=== PATIENT | male | born 1955 | race Caucasian/White ===

== ENCOUNTER 2017-01-17 14:28 | Observation (INO) | payer BC ==
[~2017-01-17 14:28] MED LIST: REGADENOSON INJ 0.4 MG/5 ML DISP.SYRIN IV ONE
--- NOTE | 2017-01-17 14:51 | ER Document Report ---
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 The patient reports associated dyspnea and felt lightheaded, but he denies any nausea, vomiting, belching or cough. The patient took aspirin and the pain came down from about a 10 out of 10 down to a 7 out of 10. The patient was given 2 sublingual nitroglycerin while en route by EMS in the chest pain came down to a 1 out of 10 at time of arrival. Past Medical History - General Information source: Patient - Social History Smoking Status: Never Smoker Cigarette use (# per day): No Frequency of alcohol use: None Drug Abuse: None Lives with: Family Family History: CAD Review of Systems - Review of Systems Notes: REVIEW OF SYSTEMS: CONSTITUTIONAL : Denies fever, chills, or sweats. Denies recent illness. EENT: Denies eye, ear, throat, or mouth pain or symptoms. Denies nasal or sinus congestion or discharge. Denies throat, tongue, or mouth swelling or difficulty swallowing. CARDIOVASCULAR: Denies palpitations or racing or irregular heart beat. Denies ankle edema. RESPIRATORY: Denies cough, cold, or chest congestion. Denies wheezing. GASTROINTESTINAL: Denies abdominal pain or distention. Denies nausea, vomiting , or diarrhea. Denies blood in vomitus, stools, or per rectum. Denies black, tarry stools. Denies constipation. GENITOURINARY: Denies difficulty urinating, painful urination, burning, frequency, blood in urine, or discharge. MUSCULOSKELETAL: Denies back or neck pain or stiffness. Denies joint pain or swelling. SKIN: Denies rash, lesions or sores. HEMATOLOGIC : Denies easy bruising or bleeding. LYMPHATIC: Denies swollen, enlarged glands. NEUROLOGICAL: Denies confusion or altered mental status. Denies passing out or loss of consciousness. Denies headache. Denies weakness or paralysis or loss of use of either side. Denies problems with gait or speech. Denies sensory loss, numbness, or tingling. Denies seizures. PSYCHIATRIC: Denies depression, suicidal ideation, or homicidal ideation. Patient does admit to some recent stress work related to his increased work load. ALL OTHER SYSTEMS REVIEWED AND NEGATIVE. Dictation was performed using [employer] voice recognition software Physical Exam - Vital signs Vitals: Pulse Ox 98 01/17/17 14:40 - Notes Notes: PHYSICAL EXAMINATION: GENERAL: Well-appearing, well-nourished and in no acute distress. HEAD: Atraumatic, normocephalic. EYES: Pupils equal round and reactive to light, extraocular movements intact, sclera anicteric, conjunctiva are normal. ENT: Nares patent, oropharynx clear without exudates. Moist mucous membranes. NECK: Normal range of motion, supple without lymphadenopathy LUNGS: Breath sounds clear to auscultation bilaterally and equal. No wheezes rales or rhonchi. HEART: Regular rate and rhythm without murmurs ABDOMEN: Soft, nontender, nondistended abdomen. No guarding, no rebound. No masses appreciated. Negative Bishop's. Musculoskeletal: Normal range of motion, no pitting or edema. No cyanosis. Negative Homans. No palpable cord. I'm unable to reproduce the patient's chest pain on palpation or with resistance to motion. No erythema or crepitance. Patient localizes the pain is midsternal to slightly right-sided. NEUROLOGICAL: Cranial nerves grossly intact. Normal speech, normal gait. Normal sensory, motor exams PSYCH: Normal mood, normal affect. SKIN: Warm, Dry, normal turgor, no rashes or lesions noted. Course - Re-evaluation Re-evalutation: 01/17/17 18:08 Patient remained pain free after nitroglycerin paste was placed and denies any dyspnea. Initial troponin negative. Lab studies otherwise normal. Chest x-ray normal. Discussion was undertaken with Dr. Moise who agreed to consult on the patient. Discussion was undertaken with Dr. Marie who agreed to see the patient in the emergency department. Discussion was undertaken with the patient and his daughter who is a nurse at [employer] and they were in agreement with admission for further cardiac evaluation and care. Repeat troponin was ordered which is pending. Repeat EKG as interpreted by me showed normal sinus rhythm heart rate of 70. There was some resolution of the inferior T-wave inversions versus the previous EKG. Although this change was minimal, it could represent some ischemia from the initial EKG. No obvious evidence for STEMI. - Vital Signs Vital signs: Temp Pulse Resp BP Pulse Ox 98 01/17/17 14:40 - Laboratory Result Diagrams: 01/17/17 14:50 01/17/17 14:50 Laboratory results interpreted by me: 01/17/17 01/17/17 14:50 14:50 RBC 4.13 L Hgb 13.1 L Chloride 108 H ALT 14 L Total Protein 6.2 L - EKG Interpretation by Me EKG shows normal: Sinus rhythm Additional EKG results interpreted by me: 01/17/17 15:02 EKG as interpreted by me showed normal sinus rhythm at 76. There is no gross evidence for acute IN or ischemia noted. There is somewhat late R-wave progression and Q waves appreciated inferiorly. No old EKG available for comparison. Critical Care Note - Critical Care Note Total time excluding time spent on procedures (mins): 38 Discharge - Discharge Clinical Impression: Parkinsons disease Chest pain Qualifiers: Chest pain type: unspecified Qualified Code(s): R07.9 - Chest pain, unspecified Condition: Stable Disposition: ADMITTED INPATIENT Admitting Provider: Hospitalist Unit Admitted: Telemetry
[2017-01-17] MEDS ORDERED: NITROGLYCERIN 2% OINTMENT 1 GM PACKET TP ONE (14:52)
[2017-01-17 15:18] LABS: ABSOLUTE EOSINOPHILS # (AUTO) 0.1 10^3/uL (0.0-0.6); ABSOLUTE LYMPHOCYTES (AUTO) 1.1 10^3/uL (0.5-4.7); ABSOLUTE MONOCYTES (AUTO) 0.6 10^3/uL (0.1-1.4); ABSOLUTE NEUT (AUTO) 4.7 10^3/uL (1.7-8.2); BASOPHILS % (AUTO) 0.5 % (0-2); HEMATOCRIT 38.7 % (37.9-51.0); HEMOGLOBIN 13.1 g/dL (13.5-17.0); HGB HCT DIFFERENCE 0.6; LYMPHOCYTES % (AUTO) 17.2 % (13-45); MEAN CORPUSCULAR HEMOGLOBIN 31.8 pg (27.0-33.4); MEAN CORPUSCULAR HGB CONC 33.9 g/dL (32.0-36.0); MEAN CORPUSCULAR VOLUME 94 fl (80-97); MONOCYTES % (AUTO) 9.4 % (3-13); PROTHROMBIN TIME 12.8 SEC (11.4-15.4); RED BLOOD COUNT 4.13 10^6/uL (4.35-5.55); RED CELL DISTRIBUTION WIDTH 13.3 % (11.5-14.0); SEGMENTED NEUTROPHILS % (AUTO) 71.9 % (42-78); WHITE BLOOD COUNT 6.5 10^3/uL (4.0-10.5)
[2017-01-17 15:45] LABS: ALANINE AMINOTRANSFERASE 14 U/L (21-72); ALBUMIN 3.9 g/dL (3.5-5.0); ALKALINE PHOSPHATASE 94 U/L (38-126); ANION GAP 8 (5-19); ASPARTATE AMINO TRANSFERASE 21 U/L (17-59); BILIRUBIN,DIRECT 0.3 mg/dL (0.0-0.4); BILIRUBIN,TOTAL 0.9 mg/dL (0.2-1.3); BLOOD UREA NITROGEN 13 mg/dL (7-20); CARBON DIOXIDE 26 mmol/L (22-30); CHLORIDE 108 mmol/L (98-107); CREATININE RESULT 0.92 mg/dL (0.52-1.25); GLUCOSE 92 mg/dL (75-110); MAGNESIUM 1.8 mg/dL (1.6-2.3); SODIUM 141.6 mmol/L (137-145); TOTAL PROTEIN 6.2 g/dL (6.3-8.2)
[2017-01-17] MEDS ORDERED: ONDANSETRON HCL INJ/PF 4 MG/2 ML SDV IV PRN (18:16)
[2017-01-17] MEDS ORDERED: ONDANSETRON 4 MG TAB.RAPDIS PO PRN (18:16)
[2017-01-17] MEDS ORDERED: ACETAMINOPHEN 325 MG TABLET PO PRN (18:16)
--- NOTE | 2017-01-17 18:30 | PDOC H&P ---
History of Present Illness Admission Date/PCP: 01/17/2017. Primary care is Dr. 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 He described it as a sharp pain that did not radiate. He reported the pain was initially 10 out of 10. He took 2 aspirin and sat down. Once EMS arrived he was given nitroglycerin and his pain decreased down to 7 out of 10. Since going to the emergency room he was given Nitropaste and his pain has resolved. He did not have any associated nausea or vomiting. He was diaphoretic. Denies any palpitations or tachycardia. The patient prior to this episode had not had any pain or he was delivering. He denies have any dyspnea on exertion. Denies any orthopnea or PND. His father at age 85 with coronary artery disease. The patient does not have hypertension or diabetes. His only risk factor is his family history. Past Medical History Cardiac Medical History: Reports: None Pulmonary Medical History: Reports: None EENT Medical History: Reports: None Neurological Medical History: Reports: Other - Parkinson's disease Endocrine Medical History: Reports: None Renal/ Medical History: Reports: None Malignancy Medical History: Reports: None GI Medical History: Reports: None Musculoskeltal Medical History: Reports: None Skin Medical History: Reports: None Traumatic Medical History: Reports: None Hematology: Reports: None Infectious Medical History: Reports: None Past Surgical History Past Surgical History: Reports: None Social History Information Source: Patient Lives with: Family Smoking Status: Never Smoker Frequency of Alcohol Use: None Hx Recreational Drug Use: No Drugs: None Hx Prescription Drug Abuse: No - Advance Directive Resuscitation Status: Full Code Family History Family History: Father at age 85 from coronary artery disease. Mother at age 85 from pancreatic cancer. Parental Family History Reviewed: Yes Children Family History Reviewed: No Sibling(s) Family History Reviewed.: No Review of Systems Constitutional: ABSENT: chills, fever(s), headache(s), weight gain, weight loss Eyes: ABSENT: visual disturbances Ears: ABSENT: hearing changes Cardiovascular: PRESENT: as per HPI Respiratory: ABSENT: cough, hemoptysis Gastrointestinal: ABSENT: abdominal pain, constipation, diarrhea, hematemesis, hematochezia, nausea, vomiting Genitourinary: ABSENT: dysuria, hematuria Musculoskeletal: ABSENT: joint swelling Integumentary: ABSENT: rash, wounds Neurological: PRESENT: abnormal movements - Parkinson's disease.. ABSENT: abnormal gait, abnormal speech, confusion, dizziness, focal weakness, syncope Psychiatric: ABSENT: anxiety, depression Endocrine: ABSENT: cold intolerance, heat intolerance, polydipsia, polyuria Hematologic/Lymphatic: ABSENT: easy bleeding, easy bruising Physical Exam Vital Signs: Temp Pulse Resp BP Pulse Ox 98 01/17/17 14:40 Intake & Output 01/16/17 01/17/17 01/18/17 06:59 06:59 06:59 Weight 77.111 kg General appearance: PRESENT: no acute distress, well-developed, well-nourished Eye exam: PRESENT: conjunctiva pink, EOMI, PERRLA. ABSENT: scleral icterus Ear exam: PRESENT: normal external ear exam Mouth exam: PRESENT: moist, tongue midline Neck exam: ABSENT: carotid bruit, JVD, lymphadenopathy, thyromegaly Respiratory exam: PRESENT: clear to auscultation lauren. ABSENT: rales, rhonchi, wheezes Cardiovascular exam: PRESENT: RRR. ABSENT: diastolic murmur, rubs, systolic murmur Pulses: PRESENT: normal dorsalis pedis pul Vascular exam: PRESENT: normal capillary refill GI/Abdominal exam: PRESENT: normal bowel sounds, soft. ABSENT: distended, guarding, mass, organolmegaly, rebound, tenderness Rectal exam: PRESENT: deferred Extremities exam: ABSENT: calf tenderness, clubbing, pedal edema Neurological exam: PRESENT: alert, awake, oriented to person, oriented to place , oriented to time, oriented to situation, CN II-XII grossly intact, other - Some mild cogwheeling. Psychiatric exam: PRESENT: appropriate affect Skin exam: PRESENT: dry, intact, warm. ABSENT: cyanosis, rash Results Laboratory Results: 01/17/17 14:50 01/17/17 14:50 01/17/17 01/17/17 14:50 14:50 WBC 6.5 RBC 4.13 L Hgb 13.1 L Hct 38.7 MCV 94 MCH 31.8 MCHC 33.9 RDW 13.3 Plt Count 211 Seg Neutrophils % 71.9 Lymphocytes % 17.2 Monocytes % 9.4 Eosinophils % 1.0 Basophils % 0.5 Absolute Neutrophils 4.7 Absolute Lymphocytes 1.1 Absolute Monocytes 0.6 Absolute Eosinophils 0.1 Absolute Basophils 0.0 Sodium 141.6 Potassium 5.0 Chloride 108 H Carbon Dioxide 26 Anion Gap 8 BUN 13 Creatinine 0.92 Est GFR ( Amer) > 60 Est GFR (Non-Af Amer) > 60 Glucose 92 Calcium 9.0 Magnesium 1.8 Total Bilirubin 0.9 AST 21 ALT 14 L Alkaline Phosphatase 94 Total Protein 6.2 L Albumin 3.9 01/17/17 14:50 Troponin I < 0.012 Impressions: Chest X-Ray 01/17/17 14:51 IMPRESSION: NO ACUTE RADIOGRAPHIC FINDING IN THE CHEST. Assessment & Plan - Diagnosis (1) Chest pain Qualifiers: Chest pain type: unspecified Qualified Code(s): R07.9 - Chest pain, unspecified Is this a current diagnosis for this admission?: YesPlan: Patient's only risk factor is his family history. He had been doing well until sudden onset. It's unclear as to whether this is cardiac or GI in nature. It was relieved with nitroglycerin however he has not had any other problems. We will monitor on telemetry and check serial cardiac enzymes. If his cardiac enzymes are negative we will plan on doing a cardiac stress test in the morning. Patient will continue with aspirin. (2) Parkinsons disease Is this a current diagnosis for this admission?: YesPlan: Patient is on multiple medications for his Sinemet and we will continue with those. - Time Time Spent: 50 to 70 Minutes - Plan Summary Plan Summary: Patient will be made an observation admission as I anticipate this will require less than two midnight hospital stay.
[2017-01-17] MEDS: FAMOTIDINE 20 MG TABLET PO SCH (22:00)
--- NOTE | 2017-01-17 22:18 | EKG REPORT ---
SEVERITY:- NORMAL ECG - SINUS RHYTHM : Confirmed by: Juan Moise 17-Jan-2017 22:17:58
[2017-01-18 01:48] LABS: CREATINE KINASE MB 1.25 ng/mL (<4.55)
[2017-01-18 01:54] LABS: TROPONIN I < 0.012 ng/mL
[2017-01-18] MEDS ORDERED: ENTACAPONE 200 MG TABLET ONE (07:05)
[2017-01-18] MEDS: ENTACAPONE 200 MG TABLET PO SCH ×3 (07:16→12:45)
[2017-01-18] MEDS: CARBIDOPA/LEVODOPA 25-100 MG TABLET PO SCH ×3 (07:17→12:45)
[2017-01-18 07:40] LABS: ANION GAP 7 (5-19); BLOOD UREA NITROGEN 14 mg/dL (7-20); CALCIUM 9.4 mg/dL (8.4-10.2); CARBON DIOXIDE 27 mmol/L (22-30); CHLORIDE 108 mmol/L (98-107); CREATINE KINASE 68 U/L (55-170); CREATININE RESULT 0.92 mg/dL (0.52-1.25); GLUCOSE 84 mg/dL (75-110); MAGNESIUM 1.9 mg/dL (1.6-2.3); POTASSIUM 4.6 mmol/L (3.6-5.0); SODIUM 141.7 mmol/L (137-145)
--- NOTE | 2017-01-18 07:45 | EKG REPORT ---
SEVERITY:- ABNORMAL ECG - SINUS RHYTHM PROBABLE LEFT ATRIAL ABNORMALITY PROBABLE INFERIOR INFARCT, AGE INDETERMINATE CONSIDER ANTERIOR INFARCT : Confirmed by: Juan Moise 18-Jan-2017 07:44:40
[2017-01-18 07:49] LABS: CREATINE KINASE MB 1.28 ng/mL (<4.55)
[2017-01-18 07:52] LABS: TROPONIN I < 0.012 ng/mL
[2017-01-18] MEDS ORDERED: ESCITALOPRAM OXALATE 10 MG TABLET PO SCH (08:00)
[2017-01-18] MEDS ORDERED: RASAGILINE MESYLATE 1 MG PO SCH (10:00)
[2017-01-18] MEDS ORDERED: ASPIRIN 81 MG TABLET, ENT COATED PO SCH (10:00)
[2017-01-18] MEDS ORDERED: CYCLOBENZAPRINE HCL 10 MG TABLET PO SCH (10:00)
[2017-01-18] MEDS: FAMOTIDINE 20 MG TABLET PO SCH (10:30)
[2017-01-18 13:36] VITALS: BP 138/70
--- NOTE | 2017-01-18 17:53 | PDOC DISCHARGE SUMMARY ---
General - Admit/Disc Date/PCP Admission Date/Primary Care Provider: 01/17/17 18:16 Discharge Date: 01/18/17 - Discharge Diagnosis (1) Chest pain Is this a current diagnosis for this admission?: YesSummary: Normal stress test. (2) Parkinsons disease Is this a current diagnosis for this admission?: Yes - Additional Information Resuscitation Status: Full Code Discharge Diet: Regular Discharge Activity: Activity As Tolerated, Balance Activity w/Rest, Slowly Increase Activity Home Medications: Carbidopa/Levodopa [Sinemet 25-100 mg Tablet] 1 tab PO 5XD 01/17/17 Cyclobenzaprine HCl [Flexeril 10 mg Tablet] 10 mg PO TID 01/17/17 Entacapone [Comtan 200 mg Tablet] 200 mg PO 5XD 01/17/17 Escitalopram Oxalate [Lexapro 10 mg Tablet] 10 mg PO QAM 01/17/17 Rasagiline Mesylate [Azilect 1 mg Tablet] 1 mg PO DAILY 01/17/17 Aspirin [Ecotrin 81 mg EC Tablet] 81 mg PO DAILY tabec 01/18/17 History of Present Illness History of Present Illness: FATOU KELLEY is a 61 year old male with Parkinson's disease but no other medical problems who is in good physical shape 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 He described it as a sharp pain that did not radiate. He reported the pain was initially 10 out of 10. He took 2 aspirin and sat down. Once EMS arrived he was given nitroglycerin and his pain decreased down to 7 out of 10. Since going to the emergency room he was given Nitropaste and his pain has resolved. He did not have any associated nausea or vomiting. He was diaphoretic. Denies any palpitations or tachycardia. The patient prior to this episode had not had any pain or he was delivering. He denies have any dyspnea on exertion. Denies any orthopnea or PND. His father at age 85 with coronary artery disease. The patient does not have hypertension or diabetes. His only risk factor is his family history. Hospital Course Hospital Course: Patient presented with atypical chest pain. He was monitored on telemetry and had negative cardiac enzymes. The patient then underwent a stress test and it was negative for any ischemia. His thought that his chest pain most likely was secondary to a GI source such as esophageal spasm. Physical Exam Vital Signs: Temp Pulse Resp BP Pulse Ox 98.0 F 72 16 138/70 H 100 01/18/17 13:33 01/18/17 13:33 01/18/17 13:33 01/18/17 13:33 01/18/17 13:33 Intake & Output 01/17/17 01/18/17 01/19/17 06:59 06:59 06:59 Weight 77.1 kg General appearance: PRESENT: no acute distress, well-developed, well-nourished Eye exam: PRESENT: conjunctiva pink. ABSENT: scleral icterus Mouth exam: PRESENT: moist, tongue midline Neck exam: ABSENT: JVD Respiratory exam: PRESENT: clear to auscultation lauren. ABSENT: rales, rhonchi, wheezes Cardiovascular exam: PRESENT: RRR. ABSENT: diastolic murmur, rubs, systolic murmur Pulses: PRESENT: normal dorsalis pedis pul GI/Abdominal exam: PRESENT: normal bowel sounds, soft. ABSENT: distended, guarding, mass, organolmegaly, rebound, tenderness Extremities exam: ABSENT: calf tenderness, clubbing, pedal edema Neurological exam: PRESENT: alert, awake, oriented to person, oriented to place , oriented to time, oriented to situation, CN II-XII grossly intact. ABSENT: motor sensory deficit Psychiatric exam: PRESENT: appropriate affect Skin exam: PRESENT: dry, intact, warm. ABSENT: cyanosis, rash Results Laboratory Results: 01/18/17 06:51 01/18/17 06:51 Sodium 141.7 Potassium 4.6 Chloride 108 H Carbon Dioxide 27 Anion Gap 7 BUN 14 Creatinine 0.92 Est GFR ( Amer) > 60 Est GFR (Non-Af Amer) > 60 Glucose 84 Calcium 9.4 Magnesium 1.9 01/18/17 01/18/17 01/18/17 00:30 00:30 06:51 Creatine Kinase 75 68 CK-MB (CK-2) 1.25 Troponin I < 0.012 01/18/17 06:51 Creatine Kinase CK-MB (CK-2) 1.28 Troponin I < 0.012 Impressions: Chest X-Ray 01/17/17 14:51 IMPRESSION: NO ACUTE RADIOGRAPHIC FINDING IN THE CHEST. Qualifiers PATEINT BEING DISCHARGED WITH ANY OF THE FOLLOWING DIAGNOSIS?: No Plan Discharge Plan: Patient is discharged home in stable condition. Will follow primary care in 2 weeks. Time Spent: Less than 30 Minutes
--- NOTE | 2017-01-18 18:37 | DRAGON STRESS TEST REPORT ---
Intravenous LexiScan Cardiolite stress test using single photon emmision computerized tomographic. Date of procedure: 01/18/2017 Ordering Provider: Dr. Marie Primary Care Physician: Dr. Carolina. Indication:[ Chest pain. Coronary risk factors: Age, and family history of coronary artery disease . The patient started exercising on a treadmill but even after 8 minutes and 31 seconds into his heart rate went up 125 which is 78% of maximum predicted heart rate for age. In view of this the treadmill exercise was terminated, since the patient was unable to exercise further, and the stress test was changed to Lexiscan Cardiolite. Note that the patient had no chest pain or EKG changes of ischemia on the treadmill. Resting EKG: Sinus Rhythm. Within normal limits. The patient had no chest pain or discomfort and there was no arrhythmia seen with IV Lexiscan Stress EKG: No changes of ischemia. With IV Lexiscan. Reason for termination: Protocol. Conclusions: Normal EKG and hemodynamic response to IV LexiScan. Nuclear data: At rest the patient was given 11.95 millicuries of technetium 99 sestamibi injected intravenously. As per protocol rest non gated SPECT images were obtained. Subsequently the patient was given intravenous LexiScan at a dose of 0.4 mg in 5 mL intravenously, followed by flush with normal saline. Subsequently the stress dose of 32.1 millicuries of technetium 99 sestamibi was injected intravenously. As per protocol stress gated images were obtained. Next Nuclear interpretation: Review of images showed that all segments of the myocardium had normal perfusion at rest, and normal perfusion post stress with IV LexiScan. All segments of the myocardium had normal motion, contraction, and thickening by gated study. T. I D. ratio was normal at 1.14.. Computer read rest, and stress left ventricular ejection fraction were 73%, and 67% respectively. Impression: 1. There is no scintigraphic evidence of LexiScan induced myocardial ischemia. 2. There is no scintigraphic evidence of myocardial infarction/scar. Recommendations: Aggressive risk factor modification, and treating the underlying co- morbidities [] MTDD
== END 2017-01-18 13:55 | disposition home or self-care (01) ==
LOC: ER 14:28 → EH 18:16 → 5 21:22
PROVIDERS: ADMIT Internal Medicine; ATTEND Internal Medicine
DX: R07.2 Precordial pain (principal); G20 Parkinson's disease; Z79.82 Long term (current) use of aspirin; Z79.899 Other long term (current) drug therapy; Z82.49 Family history of ischemic heart disease and other diseases of the circulatory system
CPT/HCPCS: 93005 ×2; 99291; 36415 ×2; 82553 ×2; 82550 ×2; 83735 ×2; 85025; 85610; 80048; 80053; 84484 ×2; 93017; 71010; 78452; 93010 ×2; G0378 ×3; A9500; J2785; J3490 ×4; Q9969